=== PATIENT | female | born 1970 | race Caucasian/White ===

== ENCOUNTER 2018-07-10 09:33 | Inpatient (IN) | payer OTHER ==
[2018-07-10 10:48] VITALS: BMI 28.6
--- NOTE | 2018-07-10 12:03 | HP ---
COWS - Scale Resting Pulse: 1= [place] 81-100 Sweatin= Chills/Flushing Restless Observation: 1= Difficult to Sit Still Pupil Size: 1= Pupils >than Normal Bone or Joint Aches: 2= Severe Diffuse Aches Runny Nose/ Eye Tearin= Runny Nose/Eyes GI Upset > 30mins: 2= Nausea/Diarrhea Tremor Observation: 2= Slight Tremor Visible Yawning Observation: 2= >3x During Session Anxiety or Irritability: 2=Irritable/Anxious Goose Flesh Skin: 0=Smooth Skin COWS Score: 16 CIWA Score - Admission Criteria [facility] Guidelines: Admission for Medically Managed Detox: Requires at least one of the followin. CIWA greater than 12 2. Seizures within the past 24 hours 3. Delirium tremens within the past 24 hours 4. Hallucinations within the past 24 hours 5. Acute intervention needed for co occurring medical disorder 6. Acute intervention needed for co occurring psychiatric disorder 7. Severe withdrawal that cannot be handled at a lower level of care (continued vomiting, continued diarrhea, abnormal vital signs) requiring intravenous medication and/or fluids 8. Admission ROS S - HPI Chief Complaint: i need help to stop using heroin,also alcohol,abused and marijuana abused Allergies/Adverse Reactions: Allergies Allergy/AdvReac Type Severity Reaction Status Date / Time No Known Allergies Allergy Verified 07/10/18 10:35 History of Present Illness: this 48 years old female with heroin dependence,alcohol abused and marijuana abused, withdrawal symptom,seen at [facility] this morning refer for detox multiple admissions in detox,last detox 2018 unknown facility nicotine dependence 1 pack/day,requesting nicotine gum insomnia seizure last 10 years ago plan for out patient program Exam Limitations: No Limitations - Ebola screening Have you traveled outside of the country in the last 21 days: No Have you had contact with anyone from an Ebola affected area: No Do you have a fever: No - Review of Systems Constitutional: Chills, Diaphoresis, Loss of Appetite, Malaise, Night Sweats, Changes in sleep, Weakness EENT: reports: Tearing, Nose Congestion Respiratory: reports: No Symptoms reported Cardiac: reports: No Symptoms Reported GI: reports: Diarrhea, Nausea, Vomiting, Abdominal cramping : reports: No Symptoms Reported Musculoskeletal: reports: Back Pain, Joint Pain, Joint Stiffness Neuro: reports: Headache, Tremors Endocrine: reports: No Symptoms Reported Hematology: reports: No Symptoms Reported Psychiatric: reports: No Sypmtoms Reported, Judgement Intact, Mood/Affect Appropiate, Orientated x3 Other Systems: Reviewed and Negative Patient History - Patient Medical History Hx Anemia: No Hx Asthma: No Hx Chronic Obstructive Pulmonary Disease (COPD): No Hx Cancer: No Hx Cardiac Disorders: No Hx Congestive Heart Failure: No Hx Hypertension: No Hx Hypercholesterolemia: No Hx Pacemaker: No HX Cerebrovascular Accident: No Hx Seizures: Yes (last 2008) Hx Dementia: No Hx Diabetes: No Hx Gastrointestinal Disorders: No Hx Liver Disease: No Hx Genitourinary Disorders: No Hx Sexually Transmitted Disorders: No Hx Renal Disease (ESRD): No Hx Thyroid Disease: No Hx Human Immunodeficiency Virus (HIV): No (last 2008 negative) Hx Hepatitis C: No Hx Depression: No Hx Suicide Attempt: No Hx Bipolar Disorder: No Hx Schizophrenia: No Other Medical History: inasomnia,anxiety - Patient Surgical History Hx Cholecystectomy: Yes (lap in 2015) - PPD History Previous Implant?: Yes Documented Results: Negative w/o proof Implanted On Prior [facility] Admission?: No PPD to be Administered?: Yes - Reproductive History Patient is a Female of Child Bearing Age (11 -55 yrs old): Yes Last Menstrual Period: 05/24/18 Patient : No - Smoking Cessation Smoking history: Current every day smoker Have you smoked in the past 12 months: Yes Aproximately how many cigarettes per day: 20 Cigars Per Day: 0 Hx Chewing Tobacco Use: No Initiated information on smoking cessation: Yes 'Breaking Loose' booklet given: 07/10/18 - Substance & Tx. History Hx Alcohol Use: Yes Hx Substance Use: Yes Substance Use Type: Alcohol, Heroin, Marijuana Hx Substance Use Treatment: Yes (2008 unknown facility) - Substances abused Heroin Substance route: Inhalation Frequency: Daily Amount used: a bundle Age of first use: 21 Date of last use: 07/10/18 Alcohol Substance route: Oral Frequency: 1-2 times per week Amount used: "i don't really drink for 2 months now'.1/2 pint of vodka Age of first use: 21 Date of last use: 05/14/18 Marijuana/Hashish Substance route: Smoking Frequency: 1-2 times per week Amount used: 10$ Age of first use: 21 Date of last use: 07/08/18 Family Disease History - Family Disease History Family History: Denies Admission Physical Exam [facility] - Vital Signs Vital Signs: Vital Signs - 24 hr 07/10/18 07/10/18 10:39 11:11 Temperature 97.9 F 97.9 F Pulse Rate 85 85 Respiratory 20 20 Rate Blood Pressure 137/66 137/66 - Physical General Appearance: Yes: Moderate Distress, Tremorous, Irritable, Sweating, Anxious HEENTM: Yes: Normal ENT Inspection, JANAK, Pharynx Normal Respiratory: Yes: Lungs Clear, Normal Breath Sounds, No Respiratory Distress Neck: Yes: Within Normal Limits, Supple, Trachea in good position Breast: Yes: Breast Exam Deferred Cardiology: Yes: Within Normal Limits, Regular Rhythm, Regular Rate, S1, S2 Abdominal: Yes: Within Normal Limits, Normal Bowel Sounds, Non Tender, Soft Genitourinary: Yes: Within Normal Limits Back: Yes: Muscle Spasm Musculoskeletal: Yes: full range of Motion, Back pain, Muscle Pain Extremities: Yes: Normal Range of Motion, Tremors Neurological: Yes: welding machine operator/tender II-XII NML intact, Alert, Motor Strength 5/5 Integumentary: Yes: Dry Lymphatic: Yes: Within Normal Limits - Diagnostic (1) Opioid dependence with withdrawal Current Visit: Yes Status: Acute (2) Alcohol abuse Current Visit: Yes Status: Chronic (3) Cannabis abuse Current Visit: Yes Status: Chronic (4) Seizure Current Visit: Yes Status: Acute (5) Anxiety Current Visit: Yes Status: Acute (6) Insomnia Current Visit: Yes Status: Chronic (7) Depression Current Visit: Yes Status: Acute (8) Nicotine dependence Current Visit: Yes Status: Chronic Cleared for Admission [facility] - Detox or Rehab [facility] Level of Care: Medically Managed Detox Regimen/Protocol: Methadone Breathalyzer - Breathalyzer Breathalyzer: 0 Urine Drug Screen - Test Device Lot number: [id number] Expiration date: 02/14/20 - Control Is test valid?: Yes - Results Drug screen NEGATIVE: No Urine drug screen results: THC-Marijuana, FEN-Fentanyl, MOP-Opiates, BZO- Benzodiazepines Inpatient Rehab Admission - Rehab Decision to Admit Inpatient rehab admission?: No
[2018-07-10] MEDS ORDERED: ACETAMINOPHEN 325 MG TABLET (FP) PO PRN ×2 (12:13)
[2018-07-10] MEDS ORDERED: hydrOXYzine PAMOATE 25 MG CAPSULE (FP) PO PRN (12:13)
[2018-07-10] MEDS ORDERED: MENTHOL/PHENOL 1 EACH UD MM PRN (12:13)
[2018-07-10] MEDS ORDERED: MAG HYDROX/AL HYDROX/SIMETH 30 ML UNIT-DOSE CUP PO PRN (12:13)
[2018-07-10] MEDS ORDERED: METHOCARBAMOL 500 MG TABLET PO PRN (12:13)
[2018-07-10] MEDS ORDERED: NICOTINE POLACRILEX 2 MG GUM BUC PRN (12:13)
[2018-07-10] MEDS ORDERED: IBUPROFEN 400 MG TABLET (FP) PO PRN (12:13)
[2018-07-10] MEDS ORDERED: BISMUTH SUBSALICYLATE 262 MG/15 ML BTL PO PRN (12:13)
[2018-07-10] MEDS ORDERED: cloNIDine HCL 0.1 MG TABLET PO PRN (12:13)
[2018-07-10] MEDS ORDERED: MAGNESIUM HYDROX 2400MG/30ML ORAL SUSPENSION 30 ML CUP PO PRN (12:13)
[2018-07-10] MEDS ORDERED: MAGNESIUM CITRATE 300 ML BOTTLE PO PRN (12:13)
[2018-07-10] MEDS ORDERED: METHADONE HCL 10 MG TABLET (FOR DETOX USE ONLY) PO ONE ×2 (13:00→23:00)
--- NOTE | 2018-07-10 14:03 | CONSULT ---
[facility] Psychiatric Consult - Data Date of interview: 07/10/18 Admission source: [facility] Identifying data: First visit to [facility] for this 48 y/o female self- referred for detoxification (heroin, cannabis, alcohol). Interviewed at [address] [place] [address]. Patient is single, a mother of one, domiciled and currently employed. Substance Abuse History: [facility] report on history of substance abuse : confirmed by the patient in this interview. Details as follows : Smoking history: Current every day smoker. Have you smoked in the past 12 months: Yes. Aproximately how many cigarettes per day: 20. Cigars Per Day: 0. Hx Chewing Tobacco Use: No. Initiated information on smoking cessation: Yes. 'Breaking Loose' booklet given: 07/10/18. - Substance & Tx. History. Hx Alcohol Use: Yes. Hx Substance Use: Yes. Substance Use Type: Alcohol, Heroin, Marijuana. Hx Substance Use Treatment: Yes (2008 unknown facility). - Substances abused. Heroin. Substance route: Inhalation. Frequency: Daily. Amount used: a bundle. Age of first use: 21. Date of last use: 07/10/18. Alcohol. Substance route: Oral. Frequency: 1-2 times per week. Amount used: "i don't really drink for 2 months now'.1/2 pint of vodka. Age of first use: 21. Date of last use: 05/14/18. Marijuana/Hashish. Substance route: Smoking. Frequency: 1-2 times per week. Amount used: 10$. Age of first use: 21. Date of last use: 07/08/18 Medical History: Remarkable for a history of withdrawal-related seizures and cholecystectomy. Psychiatric History: Patient denies history of psychiatric hospitalizations. She reports being currently on a regimen of clonazepam + amitriptyline, prescribed by her psychiatrist, Dr Dowd, in [facility]. Ms Razo endorses Bipolar Disorder as her official diagnosis. Denies history of suicide attempts. Physical/Sexual Abuse/Trauma History: Patient denies history of abuse. Additional Comment: Urine drug screen results: THC-Marijuana, FEN-Fentanyl, MOP- Opiates, BZO-Benzodiazepines. Noted. Mental Status Exam - Mental Status Exam Alert and Oriented to: Time, Place, Person Cognitive Function: Good Patient Appearance: Well Groomed Mood: Nervous, Withdrawn, Anxious, Irritable Affect: Mood Congruent, Constricted Patient Behavior: Fatigued, Appropriate, Cooperative Speech Pattern: Clear, Appropriate (fluent in qatari) Voice Loudness: Normal Thought Process: Goal Oriented Thought Disorder: Not Present Hallucinations: Denies Suicidal Ideation: Denies Homicidal Ideation: Denies Insight/Judgement: Poor Sleep: Poorly, Difficulty falling asleep Appetite: Fair Muscle strength/Tone: Normal (no complaint offered) Gait/Station: Normal Psychiatric Findings - Problem List ([place] 1, 2,3) (1) Opioid dependence with withdrawal Current Visit: Yes Status: Acute (2) Alcohol abuse Current Visit: Yes Status: Chronic (3) Cannabis abuse Current Visit: Yes Status: Chronic (4) Nicotine dependence Current Visit: Yes Status: Chronic (5) Substance induced mood disorder Current Visit: Yes Status: Chronic (6) Anxiety disorder Current Visit: Yes Status: Chronic Comment: As per self-report. (7) Insomnia Current Visit: Yes Status: Chronic - Initial Treatment Plan Initial Treatment Plan: Psychoeducation. Support. AA/NA meetings. Groups. Motivational counseling. Detoxification. Resources available for relapse prevention (MAT) : discussed with the patient. Made aware of benefits of rehabilitative care. Medications revisited. Patient insists on resuming amitriptyline. Side effects/benefits discussed. Ms Razo is informed of the risk of cardiac adverse events, orthostasis, sedation, accidental falls and occurrence of suicidal ideation. " I have always done well on that medication. I want to stay on elavil ". Patient is given information about alternatives to tricyclics. She declines switch to alternate antidepressants/anxiolytics. Elavil 75 mg po hs (reduced). Ordered at patient's request. Informed consent ( verbal) addressed to MD. Routine EKG. Amitryptyline level. Will follow. Observation.
[2018-07-10 14:49] LABS: HEMOGLOBIN 11.3 GM/dL (10.7-15.3); MCH 29.6 pg (25.7-33.7); MCHC 32.2 g/dl (32.0-36.0); MEAN CELL VOLUME 92.1 fl (80-96); MEAN PLT VOLUME 10.1 fl (7.5-11.1); PLATELET COUNT 235 K/MM3 (134-434); RDW 18.3 % (11.6-15.6); WHITE BLOOD COUNT 5.9 K/mm3 (4.0-10.0)
[2018-07-10 14:54] LABS: ALBUMIN 3.4 g/dl (3.4-5.0); ALK PHOS 101 U/L (45-117); ANION GAP 7 MMOL/L (8-16); BILIRUBIN,TOTAL 0.6 mg/dL (0.2-1); BLOOD UREA NITROGEN 5 mg/dL (7-18); CALCIUM 8.9 mg/dL (8.5-10.1); CHLORIDE 103 mmol/L (98-107); CO2 26 mmol/L (21-32); CREATININE 0.7 mg/dL (0.55-1.3); GLUCOSE,RANDOM 70 mg/dL (74-106); POTASSIUM 4.4 mmol/L (3.5-5.1); SGOT/AST 48 U/L (15-37); SGPT/ALT 68 U/L (13-61); SODIUM 136 mmol/L (136-145); TOT PROT 7.6 g/dl (6.4-8.2)
[2018-07-10] MEDS: THIAMINE HCL 100 MG TABLET (FP) PO SCH (22:22)
[2018-07-10] MEDS: MELATONIN 5 MG TABLETS PO PRN (22:22)
[2018-07-11] MEDS: PRENATAL VITAMINS W/ FOLIC ACID TABLET (FP) PO SCH (09:47)
[2018-07-11] MEDS ORDERED: METHADONE HCL 10 MG TABLET (FOR DETOX USE ONLY) PO ONE (10:00)
--- NOTE | 2018-07-11 13:38 | PN ---
BHS COWS - Scale Resting Pulse: 1= [place] 81-100 Sweatin=Flushed/Facial Moisture Restless Observation: 1= Difficult to Sit Still Pupil Size: 0= Normal to Room Light Bone or Joint Aches: 2= Severe Diffuse Aches Runny Nose/ Eye Tearin= Nasal Congestion GI Upset > 30mins: 0= None Tremor Observation of Outstretched Hands: 2= Slight Tremor Visible Yawning Observation: 2= >3x During Session Anxiety or Irritability: 2=Irritable/Anxious Goose Flesh Skin: 0=Smooth Skin COWS Score: 13 BHS Progress Note (SOAP) Subjective: agitation sweats shakes interrupted sleep Objective: 07/11/18 13:37 Vital Signs Temperature 97.7 F 07/11/18 09:52 Pulse Rate 81 07/11/18 09:52 Respiratory Rate 18 07/11/18 09:52 Blood Pressure 143/83 07/11/18 09:52 O2 Sat by Pulse Oximetry (%) Laboratory Tests 07/10/18 07/10/18 07/10/18 12:20 12:20 12:20 WBC 5.9 RBC 3.80 Hgb 11.3 Hct 35.0 MCV 92.1 MCH 29.6 MCHC 32.2 RDW 18.3 H Plt Count 235 MPV 10.1 Sodium 136 Potassium 4.4 Chloride 103 Carbon Dioxide 26 Anion Gap 7 L BUN 5 L Creatinine 0.7 Creat Clearance w eGFR 89.31 Random Glucose 70 L Calcium 8.9 Total Bilirubin 0.6 AST 48 H ALT 68 H Alkaline Phosphatase 101 Total Protein 7.6 Albumin 3.4 RPR Titer Nonreactive labs noted aaox3 ambulating no acute distress Assessment: 07/11/18 13:38 withdrawal sx Plan: continue detox increase fluids
--- NOTE | 2018-07-11 15:21 | EKG ---
Test Reason : Blood Pressure : / mmHG Vent. Rate : 068 BPM Atrial Rate : 068 BPM P-R Int : 160 ms QRS Dur : 094 ms QT Int : 404 ms P-R-T Axes : 065 069 067 degrees QTc Int : 429 ms NORMAL SINUS RHYTHM NORMAL ECG NO PREVIOUS ECGS AVAILABLE Confirmed by SAL MARTINEZ MD ([id number]) on 07/11/2018 3:21:01 PM Referred By: Confirmed By:SAL MARTINEZ MD
[2018-07-11] MEDS: diazePAM 5 MG TABLET PO PRN (17:16)
[2018-07-11] MEDS: THIAMINE HCL 100 MG TABLET (FP) PO SCH (22:21)
[2018-07-11] MEDS: MELATONIN 5 MG TABLETS PO PRN (22:21)
[2018-07-11] MEDS: AMITRIPTYLINE HCL 75 MG TABLET PO SCH (23:54)
[2018-07-12] MEDS: diazePAM 5 MG TABLET PO PRN ×2 (09:36→19:16)
[2018-07-12] MEDS ORDERED: METHADONE HCL 10 MG TABLET (FOR DETOX USE ONLY) PO ONE (10:00)
--- NOTE | 2018-07-12 13:28 | PN ---
BHS COWS - Scale Resting Pulse: 0= [place] 80 or Below Sweatin= Chills/Flushing Restless Observation: 1= Difficult to Sit Still Pupil Size: 1= Pupils >than Normal Bone or Joint Aches: 2= Severe Diffuse Aches Runny Nose/ Eye Tearin= None GI Upset > 30mins: 0= None Tremor Observation of Outstretched Hands: 0= None Yawning Observation: 0= None Anxiety or Irritability: 2=Irritable/Anxious Goose Flesh Skin: 0=Smooth Skin COWS Score: 7 BHS Progress Note (SOAP) Subjective: patient c/o anxiety, restlessness, chills and body aches. Objective: 07/12/18 13:26 Laboratory Tests 07/10/18 07/10/18 07/10/18 12:20 12:20 12:20 WBC 5.9 RBC 3.80 Hgb 11.3 Hct 35.0 MCV 92.1 MCH 29.6 MCHC 32.2 RDW 18.3 H Plt Count 235 MPV 10.1 Sodium 136 Potassium 4.4 Chloride 103 Carbon Dioxide 26 Anion Gap 7 L BUN 5 L Creatinine 0.7 Creat Clearance w eGFR 89.31 Random Glucose 70 L Calcium 8.9 Total Bilirubin 0.6 AST 48 H ALT 68 H Alkaline Phosphatase 101 Total Protein 7.6 Albumin 3.4 RPR Titer Nonreactive Vital Signs Temperature 97.1 F L 07/12/18 09:39 Pulse Rate 82 07/12/18 09:39 Respiratory Rate 16 07/12/18 09:39 Blood Pressure 122/92 07/12/18 09:39 O2 Sat by Pulse Oximetry (%) pe: alert and oriented x 3 skin warm and dry +perrla, pupils mildly dilated ext full rom, amb ad phylicia anxious restless Assessment: 07/12/18 13:27 withdrawal sx Plan: continue detox encourage fluids monitor clinically
[2018-07-12] MEDS: PRENATAL VITAMINS W/ FOLIC ACID TABLET (FP) PO SCH (14:03)
[2018-07-12] MEDS: MELATONIN 5 MG TABLETS PO PRN (22:10)
[2018-07-12] MEDS: AMITRIPTYLINE HCL 75 MG TABLET PO SCH (22:10)
[2018-07-12] MEDS: THIAMINE HCL 100 MG TABLET (FP) PO SCH (22:10)
[2018-07-13] MEDS ORDERED: METHADONE HCL 5 MG TABLET (FOR DETOX USE ONLY) ONE (09:36)
[2018-07-13] MEDS ORDERED: METHADONE HCL 10 MG TABLET (FOR DETOX USE ONLY) ONE (09:36)
[2018-07-13] MEDS ORDERED: METHADONE (DETOX) 10 MG, METHADONE (DETOX) 5 MG PO ONE (10:00)
[2018-07-13] MEDS ORDERED: METHADONE HCL 10 MG TABLET (FOR DETOX USE ONLY) PO ONE (10:00)
[2018-07-13] MEDS: PRENATAL VITAMINS W/ FOLIC ACID TABLET (FP) PO SCH (10:31)
[2018-07-13] MEDS: diazePAM 5 MG TABLET PO PRN (10:31)
--- NOTE | 2018-07-13 10:53 | PN ---
BHS COWS - Scale Resting Pulse: 1= [place] 81-100 Sweatin= No chills or Flushing Restless Observation: 1= Difficult to Sit Still Pupil Size: 0= Normal to Room Light Bone or Joint Aches: 0= None Runny Nose/ Eye Tearin= None GI Upset > 30mins: 2= Nausea/Diarrhea Tremor Observation of Outstretched Hands: 2= Slight Tremor Visible Yawning Observation: 0= None Anxiety or Irritability: 2=Irritable/Anxious Goose Flesh Skin: 0=Smooth Skin COWS Score: 8 BHS Progress Note (SOAP) Subjective: agitation anxiety sweats irritable Objective: 07/13/18 10:52 Vital Signs Temperature 97.3 F L 07/13/18 09:18 Pulse Rate 83 07/13/18 09:18 Respiratory Rate 18 07/13/18 09:18 Blood Pressure 146/99 07/13/18 09:18 O2 Sat by Pulse Oximetry (%) aaox3 ambulating no acute distress Assessment: 07/13/18 10:53 mild withdrawal sx Plan: continue detox increase fluids d/c in am
[2018-07-13] MEDS ORDERED: LOPERAMIDE HCL 2 MG CAPSULE PO PRN (11:06)
[2018-07-13] MEDS ORDERED: AMITRIPTYLINE HCL 25 MG TABLET (FP) PO SCH (22:00)
[2018-07-13] MEDS: THIAMINE HCL 100 MG TABLET (FP) PO SCH (22:13)
[2018-07-13] MEDS: MELATONIN 5 MG TABLETS PO PRN (22:13)
[2018-07-14] MEDS ORDERED: METHADONE HCL 5 MG TABLET (FOR DETOX USE ONLY) PO ONE (06:00)
[2018-07-14 07:16] VITALS: BP 120/67; PULSE 69; TEMP 98.1
[2018-07-14] MEDS: PRENATAL VITAMINS W/ FOLIC ACID TABLET (FP) PO SCH (09:18)
[2018-07-14] MEDS ORDERED: METHADONE HCL 10 MG TABLET (FOR DETOX USE ONLY) PO ONE (10:00)
[2018-07-15] MEDS ORDERED: METHADONE HCL 5 MG TABLET (FOR DETOX USE ONLY) PO ONE (06:00)
== END 2018-07-14 09:46 | disposition home or self-care (01) | DRG 773 ==
LOC: YASAS 09:33 → Y6N 12:39
PROVIDERS: ADMIT Surgery; ATTEND Surgery
PROC: HZ2ZZZZ Detoxification Services for Substance Abuse Treatment (ICD-10-PCS; principal; 2018-07-10)
DX: F11.23 Opioid dependence with withdrawal (principal); F10.10 Alcohol abuse, uncomplicated; F12.10 Cannabis abuse, uncomplicated; F17.210 Nicotine dependence, cigarettes, uncomplicated; F19.24 Other psychoactive substance dependence with psychoactive substance-induced mood disorder; F41.9 Anxiety disorder, unspecified; F32.9 Major depressive disorder, single episode, unspecified; G47.00 Insomnia, unspecified; Z86.69 Personal history of other diseases of the nervous system and sense organs
CPT/HCPCS: 36415; 80053; 81025; 85027; 86593; 93005; 93010; G0480